=== PATIENT | female | born 1940 | race Caucasian/White ===

== ENCOUNTER → 2017-12-19 | Outpatient (CLI) | payer MEDICARE, BC | LOC: OD 11:10 | PROVIDERS: ATTEND Internal Medicine | DX: R53.83 Other fatigue (principal) | CPT/HCPCS: 36415; 86308 ==

== ENCOUNTER 2017-12-24 15:00 | Emergency (ER) | payer MEDICARE, BC ==
--- NOTE | 2017-12-24 16:15 | ER Document Report ---
ED Medical Screen (RME) - General Chief Complaint: Chest Pain Stated Complaint: CHEST PAIN Time Seen by Provider: 12/24/17 16:07 Mode of Arrival: Ambulatory Information source: Patient TRAVEL OUTSIDE OF THE [place] IN LAST 30 DAYS: No - HPI Patient complains to provider of: Chest pressure Onset: Last week Onset/Duration: Gradual, Persistent Quality of pain: Achy, Pressure Severity: Moderate Pain Level: 3 Associated Symptoms: Cough (nonproductive), Shortness of breath Notes: 12/24/17 16:14 Patient is a 77-year-old female presenting to the emergency room today complaining of one-week history of chest pressure, she did start out with a cough and congestion, was seen by her primary care provider who ordered a mono test on her, patient is unaware of the results of this test, however complains today of chest pressure with shortness of breath - Related Data Allergies/Adverse Reactions: No Known Allergies Allergy (Verified 12/24/17 15:01) Past Medical History - Social History Chew tobacco use (# tins/day): No Frequency of alcohol use: None Drug Abuse: None - Past Medical History Cardiac Medical History: Reports: Hx Hypertension - medicated Denies: Hx Heart Attack Pulmonary Medical History: Denies: Hx Asthma Neurological Medical History: Reports: 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 Denies: Hx Seizures Endocrine Medical History: Reports: Hx Diabetes Mellitus Type 2 Renal/ Medical History: Denies: Hx Peritoneal Dialysis GI Medical History: Reports: Hx Ulcer - resolved. Denies: Hx Hepatitis, Hx Hiatal Hernia Infectious Medical History: Denies: Hx Hepatitis Past Surgical History: Reports: Hx Gynecologic Surgery - BTL, Hx Tubal Ligation. Denies: Hx Hysterectomy, Hx Mastectomy, Hx Open Heart Surgery, Hx Pacemaker - Immunizations Hx Diphtheria, Pertussis, Tetanus Vaccination: Yes Physical Exam - Vital signs Vitals: Temp Pulse Resp BP Pulse Ox 97.8 F 58 L 16 149/63 H 97 12/24/17 15:13 12/24/17 15:13 12/24/17 15:13 12/24/17 15:13 12/24/17 15:13 Course - Vital Signs Vital signs: Temp Pulse Resp BP Pulse Ox 97.8 F 58 L 16 149/63 H 97 12/24/17 15:13 12/24/17 15:13 12/24/17 15:13 12/24/17 15:13 12/24/17 15:13 Doctor's Discharge - Discharge Referrals: ARTEMIO DOWNING MD [Primary Care Provider] - Follow up as needed
--- NOTE | 2017-12-24 16:53 | RADIOLOGY REPORT (SQ) ---
EXAM DESCRIPTION: CHEST 2 VIEWS COMPLETED DATE/TIME: 12/24/2017 4:44 pm REASON FOR STUDY: cp COMPARISON: 02/23/2016. EXAM PARAMETERS: NUMBER OF VIEWS: two views TECHNIQUE: Digital Frontal and Lateral radiographic views of the chest acquired. RADIATION DOSE: NA LIMITATIONS: none FINDINGS: LUNGS AND PLEURA: No opacities, masses or pneumothorax. No pleural effusion. MEDIASTINUM AND HILAR STRUCTURES: No masses or contour abnormalities. HEART AND VASCULAR STRUCTURES: Heart normal size. No evidence for failure. BONES: No acute findings. HARDWARE: None in the chest. OTHER: No other significant finding. IMPRESSION: NO ACUTE RADIOGRAPHIC FINDING IN THE CHEST. TECHNICAL DOCUMENTATION: JOB ID: [id number] [employer]- All Rights Reserved Reading location - IP/workstation name: [email or web address]
[2017-12-24 16:58] LABS: ABSOLUTE BASOPHILS # (AUTO) 0.1 10^3/uL (0.0-0.2); ABSOLUTE EOSINOPHILS # (AUTO) 0.3 10^3/uL (0.0-0.6); ABSOLUTE LYMPHOCYTES (AUTO) 2.7 10^3/uL (0.5-4.7); ABSOLUTE MONOCYTES (AUTO) 0.7 10^3/uL (0.1-1.4); ABSOLUTE NEUT (AUTO) 6.5 10^3/uL (1.7-8.2); BASOPHILS % (AUTO) 0.9 % (0-2); EOSINOPHILS % (AUTO) 2.6 % (0-6); HEMATOCRIT 38.7 % (36.0-47.0); HEMOGLOBIN 12.8 g/dL (12.0-15.5); LYMPHOCYTES % (AUTO) 26.4 % (13-45); MEAN CORPUSCULAR HEMOGLOBIN 28.5 pg (27.0-33.4); MEAN CORPUSCULAR HGB CONC 33.2 g/dL (32.0-36.0); MEAN CORPUSCULAR VOLUME 86 fl (80-97); MONOCYTES % (AUTO) 6.9 % (3-13); PLATELET COUNT 282 10^3/uL (150-450); RED BLOOD COUNT 4.51 10^6/uL (3.72-5.28); SEGMENTED NEUTROPHILS % (AUTO) 63.2 % (42-78); TOTAL CELLS COUNTED % (AUTO) 100 %; WHITE BLOOD COUNT 10.3 10^3/uL (4.0-10.5)
[2017-12-24 17:14] LABS: ALANINE AMINOTRANSFERASE 44 U/L (9-52); ALBUMIN 3.9 g/dL (3.5-5.0); ALKALINE PHOSPHATASE 93 U/L (38-126); ANION GAP 14 (5-19); ASPARTATE AMINO TRANSFERASE 51 U/L (14-36); BILIRUBIN,DIRECT 0.2 mg/dL (0.0-0.4); BILIRUBIN,TOTAL 0.2 mg/dL (0.2-1.3); BLOOD UREA NITROGEN 25 mg/dL (7-20); CALCIUM 9.4 mg/dL (8.4-10.2); CARBON DIOXIDE 29 mmol/L (22-30); CHLORIDE 99 mmol/L (98-107); GLUCOSE 243 mg/dL (75-110); POTASSIUM 4.6 mmol/L (3.6-5.0); SODIUM 141.8 mmol/L (137-145); TOTAL PROTEIN 7.7 g/dL (6.3-8.2)
[2017-12-24 17:39] LABS: TROPONIN I 1.77 ng/mL
[2017-12-24] MEDS ORDERED: NITROGLYCERIN 2% OINTMENT 1 GM PACKET TP ONE (17:45)
[2017-12-24 18:05] LABS: INTERNATIONAL RATION (INR) 0.89; PARTIAL THROMBOPLASTIN TIME 36.5 SEC (23.5-35.8); PROTHROMBIN TIME 12.5 SEC (11.4-15.4)
[2017-12-24] MEDS ORDERED: HEPARIN SODIUM,PORCINE/D5W 25,000 UNIT/250 ML RTUINJ IV PRN (18:14)
[2017-12-24] MEDS ORDERED: HEPARIN SOD (PORCINE) 1,000 UNIT/ML 10 ML VIAL IV ONE (18:14)
[2017-12-24 18:18] LABS: APPEARANCE,URINE CLEAR; BILIRUBIN,URINE NEGATIVE (NEGATIVE); COLOR,URINE YELLOW; GLUCOSE, URINE >=500 mg/dL (NEGATIVE); KETONES,URINE NEGATIVE (NEGATIVE); LEUKOCYTE ESTERASE,URINE MODERATE (NEGATIVE); NITRITE,URINE NEGATIVE (NEGATIVE); PROTEIN,URINE 100 mg/dL (NEGATIVE); URINE SPECIFIC GRAVITY 1.012; UROBILINOGEN,URINE NEGATIVE mg/dL (<2.0)
[2017-12-24] MEDS ORDERED: ASPIRIN 81 MG TABLET, CHEWABLE PO ONE (18:44)
[2017-12-24] MEDS ORDERED: ATORVASTATIN CALCIUM 80 MG TABLET PO ONE (19:25)
[2017-12-24] MEDS ORDERED: MORPHINE SULFATE 10 MG/ML INJ IV ONE (20:15)
[2017-12-24] MEDS ORDERED: ONDANSETRON 4 MG TAB.RAPDIS PO ONE (20:15)
--- NOTE | 2017-12-24 20:36 | ER Document Report ---
ED General - General Chief Complaint: Chest Pain Stated Complaint: CHEST PAIN Time Seen by Provider: 12/24/17 16:07 Mode of Arrival: Ambulatory TRAVEL OUTSIDE OF THE [place] IN LAST 30 DAYS: No - HPI Patient complains to provider of: Chest pain Notes: Patient coming in for chest pain ongoing for greater than 48 hours intermittent constant for the last 24. Patient has a history of hyperlipidemia diabetes hypertension. Patient states she has been compliant with her medications. Patient states no new physical activity patient states the pain has been more pressure sitting on her chest 3 out of 5 to 4 out of 5. Patient states upon my evaluation still have 3 out of 5 pain. Patient denies history of coronary artery disease states last time she has stress test was many years ago on a treadmill stating that she had have people hold her on the treadmill. Patient states that history of strokes and TIAs. Patient otherwise denies any recent travel resting comfortably upon my evaluation. Patient states pain does radiate anterior chest to her back to her left side of her jaw down left arm. No fevers chills nausea vomiting diarrhea - Related Data Allergies/Adverse Reactions: No Known Allergies Allergy (Verified 12/24/17 15:01) Past Medical History - General Information source: Patient - Social History Smoking Status: Never Smoker Chew tobacco use (# tins/day): No Frequency of alcohol use: None Drug Abuse: None Family History: Reviewed & Not Pertinent Patient has suicidal ideation: No Patient has homicidal ideation: No - Past Medical History Cardiac Medical History: Reports: Hx Hypertension - medicated Denies: Hx Heart Attack Pulmonary Medical History: Denies: Hx Asthma Neurological Medical History: Reports: 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 Denies: Hx Seizures Endocrine Medical History: Reports: Hx Diabetes Mellitus Type 2 Renal/ Medical History: Denies: Hx Peritoneal Dialysis GI Medical History: Reports: Hx Ulcer - resolved. Denies: Hx Hepatitis, Hx Hiatal Hernia Infectious Medical History: Denies: Hx Hepatitis Past Surgical History: Reports: Hx Gynecologic Surgery - BTL, Hx Tubal Ligation. Denies: Hx Hysterectomy, Hx Mastectomy, Hx Open Heart Surgery, Hx Pacemaker - Immunizations Hx Diphtheria, Pertussis, Tetanus Vaccination: Yes Review of Systems - Review of Systems Constitutional: No symptoms reported EENT: No symptoms reported Cardiovascular: Chest pain Respiratory: No symptoms reported Gastrointestinal: No symptoms reported Genitourinary: No symptoms reported Female Genitourinary: No symptoms reported Musculoskeletal: No symptoms reported Skin: No symptoms reported Hematologic/Lymphatic: No symptoms reported Neurological/Psychological: No symptoms reported -: Yes All other systems reviewed and negative Physical Exam - Vital signs Vitals: Temp Pulse Resp BP Pulse Ox 97.8 F 58 L 16 149/63 H 97 12/24/17 15:13 12/24/17 15:13 12/24/17 15:13 12/24/17 15:13 12/24/17 15:13 Interpretation: Normal - General General appearance: Appears well, Alert - HEENT Head: Normocephalic, Atraumatic Eyes: Normal Pupils: PERRL - Respiratory Respiratory status: No respiratory distress Chest status: Nontender Breath sounds: Normal Chest palpation: Normal - Cardiovascular Rhythm: Regular Heart sounds: Normal auscultation Murmur: No - Abdominal Inspection: Normal Distension: No distension Bowel sounds: Normal Tenderness: Nontender Organomegaly: No organomegaly - Back Back: Normal, Nontender - Extremities General upper extremity: Normal inspection, Nontender, Normal color, Normal ROM , Normal temperature General lower extremity: Normal inspection, Nontender, Normal color, Normal ROM , Normal temperature, Normal weight bearing. No: Shilo's sign - Neurological Neuro grossly intact: Yes Cognition: Normal Orientation: AAOx4 [place] Coma Scale Eye Opening: Spontaneous [place] Coma Scale Verbal: Oriented [place] Coma Scale Motor: Obeys Commands [place] Coma Scale Total: 15 Speech: Normal Motor strength normal: LUE, RUE, LLE, RLE Sensory: Normal - Psychological Associated symptoms: Normal affect, Normal mood - Skin Skin Temperature: Warm Skin Moisture: Dry Skin Color: Normal Course - Re-evaluation Re-evalutation: 12/24/17 20:36 Patient's EKG does not show any acute changes. Patient's troponin was positive at 1.7. Patient also has a slight elevation in her BNP. Patient was given Nitropaste states that upon reevaluation pain 1 out of 5 states that it is continuing to improve. The discussed the patient's case with Dr. Vargas states with the patient still having some chest pain would recommend transfer to tertiary care facility. Patient case was discussed with Dr. Juliana Colón unfortunately [facility] does not expect to have a bed in a timely manner however patient was placed on the list. Did discuss this with the patient states that she will also be fine be transferred to [facility]. Discussed the patient's case physician hospitalist at [facility] agrees with management at this time. Just before the phone call notified by nursing staff the patient states her pain was increasing. Upon evaluating patient patient still resting comfortably patient states "I do believe my pain is trying to creep back". Patient otherwise looks to be comfortable patient will be given a dose of morphine and Zofran. At this time will continue with Nitropaste. Heparin drip for anticoagulation patient was given aspirin here. Multiple repeat EKGs continued to show normal sinus rhythm no acute T-wave or ST segment changes 12/24/17 22:07 Patient reevaluated with transport at bedside patient stable for transport at this time. Patient states pain now 1.5 out of 5 - Vital Signs Vital signs: Temp Pulse Resp BP Pulse Ox 99.4 F 54 L 15 147/76 H 95 12/24/17 21:56 12/24/17 18:40 12/24/17 21:46 12/24/17 21:46 12/24/17 21:46 - Laboratory Result Diagrams: 12/24/17 16:50 12/24/17 16:50 Laboratory results interpreted by me: 12/24/17 12/24/17 12/24/17 16:50 16:50 16:50 RDW 15.0 H APTT BUN 25 H Est GFR ( Amer) 55 L Est GFR (Non-Af Amer) 45 L Glucose 243 H AST 51 H NT-Pro-B Natriuret Pep 1350 H Urine Protein Urine Glucose (UA) Ur Leukocyte Esterase Urine Ascorbic Acid 12/24/17 12/24/17 16:50 17:55 RDW APTT 36.5 H BUN Est GFR ( Amer) Est GFR (Non-Af Amer) Glucose AST NT-Pro-B Natriuret Pep Urine Protein 100 H Urine Glucose (UA) >=500 H Ur Leukocyte Esterase MODERATE H Urine Ascorbic Acid 40 H Critical Care Note - Critical Care Note Total time excluding time spent on procedures (mins): 40 Comments: Multiple evaluation for patient with an NSTEMI requiring nitro drip for pain control and transferred to tertiary care facility Discharge - Discharge Clinical Impression: Non-STEMI (non-ST elevated myocardial infarction), Diabetes Hypertension Qualifiers: Hypertension type: essential hypertension Qualified Code(s): I10 - Essential ( primary) hypertension Hyperlipidemia Qualifiers: Hyperlipidemia type: unspecified Qualified Code(s): E78.5 - Hyperlipidemia, unspecified Condition: Good Disposition: [facility] Referrals: ARTEMIO DOWNING MD [Primary Care Provider] - Follow up as needed
[2017-12-24] MEDS ORDERED: NITROGLYCERIN/D5W 50 MG/250 ML RTUINJ IV PRN (21:07)
[2017-12-24] MEDS ORDERED: HEPARIN SOD (PORCINE) 1,000 UNIT/ML 10 ML VIAL IV PRN (21:14)
[2017-12-24] MEDS ORDERED: FENTANYL CITRATE INJ/PF 100 MCG/2 ML AMPUL IV ONE (21:41)
--- NOTE | 2017-12-24 21:48 | EKG REPORT ---
SEVERITY:- BORDERLINE ECG - SINUS RHYTHM PROBABLE LEFT ATRIAL ABNORMALITY : Confirmed by: Israel Vargas 24-Dec-2017 21:47:46
--- NOTE | 2017-12-24 21:48 | EKG REPORT ---
SEVERITY:- BORDERLINE ECG - SINUS RHYTHM PROBABLE LEFT ATRIAL ABNORMALITY : Confirmed by: Israel Vargas 24-Dec-2017 21:47:30
--- NOTE | 2017-12-24 21:48 | EKG REPORT ---
SEVERITY:- BORDERLINE ECG - SINUS RHYTHM PROBABLE LEFT ATRIAL ABNORMALITY : Confirmed by: Israel Vargas 24-Dec-2017 21:48:09
[2017-12-24 21:57] VITALS: BP 147/76
== END 2017-12-24 22:04 | disposition short-term general hospital (02) ==
LOC: ER 15:00
DX: I21.4 Non-ST elevation (NSTEMI) myocardial infarction (principal); R07.9 Chest pain, unspecified; I10 Essential (primary) hypertension; E11.9 Type 2 diabetes mellitus without complications; E78.00 Pure hypercholesterolemia, unspecified; Z86.74 Personal history of sudden cardiac arrest; Z98.51 Tubal ligation status
CPT/HCPCS: 93005; 99291; 96375; 96365; 96366; 96368; 36415; 85025; 85610; 85730; 80053; 81001; 84484; 83880; 71046; 93010; J1644 ×2; A9270 ×4; J3010; J2270; J3490; S0119